=== PATIENT | female | born 1995 | race Caucasian/White ===

== ENCOUNTER 2021-10-03 19:23 | Emergency (ER) | payer OTHER ==
[2021-10-03 21:05] LABS: HEMOGLOBIN 13.2 gm/dl (12.3-15.3); RED BLOOD COUNT 4.96 M/UL (4.00-5.10); WHITE BLOOD COUNT 11.5 K/UL (4.5-11.0)
[2021-10-03 21:20] LABS: BUN/CREATININE RATIO 17 (0-10)
[2021-10-03] MEDS ORDERED: DICLEGIS DR 101 EACH PO (23:53)
== END 2021-10-04 01:25 | disposition home or self-care (01) ==
LOC: ER1 19:23
PROVIDERS: Physician Assistant
DX: O21.0 Mild hyperemesis gravidarum (principal); Z3A.01 Less than 8 weeks gestation of pregnancy
CPT/HCPCS: 80053; 81001; 83690; 85025; 87086; 99284